=== PATIENT | female | born 1955 | race Caucasian/White ===

== ENCOUNTER 2023-10-14 14:40 | Inpatient (IN) | payer OTHER, SELFPAY ==
[2023-10-14] VITALS (13 sets, daily range): BP systolic 104–153; BP diastolic 70–135; BMI 29.7; BMI 29.4
[2023-10-14 12:18] LABS: % Eosinophils 0.5 % (0-6); % Immature Granulocytes 0.7 % (0-0.5); % Monocytes 5.9 % (1.7-9.3); % Neutrophils 82.9 % (42.2-75.2); Absolute Basophils 0.1 10^3/uL (0-0.2); Absolute Eosinophils 0.1 10^3/uL (0-0.7); Absolute Immature Granulocytes 0.1 10^3/uL (0-0.05); Absolute Lymphocytes 1.2 10^3/uL (1.2-3.4); Absolute Monocytes 0.8 10^3/uL (0.1-0.6); Absolute Neutrophils 11.2 10^3/uL (1.4-6.5); Hematocrit 37.7 % (37.0-47.0); Hemoglobin 13.1 g/dL (12.0-16.0); Mean Corp Hgb Conc. 34.7 g/dL (33.0-37.0); Mean Corpuscular Hgb 33.1 pg (27.0-31.0); Mean Corpuscular Volume 95.2 fL (81.0-99.0); Mean Platelet Volume 8.1 fL (7.4-10.4); Nucleated Red Blood Cells % 0 %; Platelet Count 263 10^3/uL (130-400); Red Blood Cell Count 3.96 10^6/uL (4.20-5.40); Red Cell Dist. Width 13.3 % (11.5-14.5); White Blood Cell Count 13.5 10^3/uL (4.8-10.8)
[2023-10-14 12:28] LABS: ALT (SGPT) 30 U/L (0-35); AST (SGOT) 28 U/L (14-36); Albumin 3.6 g/dl (3.5-5.0); Alkaline Phosphatase 142 U/L (38-126); Blood Urea Nitrogen 4 mg/dl (7-17); Calcium 8.9 mg/dl (8.4-10.2); Carbon Dioxide 30 mmol/L (22-30); Chloride 95 mmol/L (98-107); Estimated Creatinine Clearance 97 ml/min; Glucose 175 mg/dl (70-99); Potassium 3.7 mmol/L (3.5-5.1); Sodium 130 mmol/L (135-145); Total Protein 6.5 g/dl (6.3-8.2); eGFR > 60.00
[2023-10-14 12:39] LABS: Troponin I < 0.012 ng/ml
[2023-10-14] MEDS: DUONEB 3 ML INH (13:20)
--- NOTE | 2023-10-14 13:43 | ED.GENMED ---
History of Present Illness
General
Chief Complaint: Breathing Problem
Source: patient and spouse
Exam Limitations: none
Time Seen by Provider: 10/14/23 12:03
Nursing documentation reviewed up to this point in time: agreed with
Travel History
Have you had any contact with someone who has COVID-19?: No
Do you have any symptoms of coronavirus? Fever > 100 degrees, chills, cough, shortness of breath, sore throat, loss of taste or smell, muscle aches, or headache?: Yes
Symptoms:: SOB, Cough, fevers,
History of Present Illness
History of Present Illness:
69-year-old female ex-smoker, never diagnosed with COPD has psoriasis on immunosuppressive meds, presents with shortness of breath cough been sick for about a month with COVID tested positive x 2 treated with multiple antibiotics of steroids and
inhalers, last night she had a tough night could not sleep she also gets some nausea after she eats with vomitus, had ultrasound evaluate this, never had endoscopy, apparently she had a pulse ox of 86% on room air, EMS gave a neb started oxygen gave
Solu-Medrol intravenously
Phy Exam
Physical Exam
Physical Exam:
Physical Exam
General: 67 female respiratory distress
Neck: No jaundice
Heart: Tachycardia
Lungs: Diminished breath sounds in the right greater than left with faint wheeze
Abdomen: Nontender
Neuro: alert and oriented. no focal neurological deficits
Skin: no rash
Psychiatric: well kept. interactive and cooperative
Extremities: Trace edema no cords
Scores
Heart Failure Risk
Heart Failure Risk Score: Not Applicable
Course
Orders/Labs/Results
Orders:
Orders
10/14/23 11:27
Electrocardiogram (*1) Urgent
Reason for Study: Tachycardia
10/14/23 11:28
EKG- Treatment ONCE
10/14/23 11:49
COVID-19 Antigen Urgent
Source: Nasal Swab
Complete Blood Count/With Diff Urgent
Comprehensive Metabolic Panel Urgent
Troponin I Urgent
Influenza A+B Rapid Molecular Urgent
ROHIT Source: Nasal Swab
Specimen Description:
10/14/23 12:20
CR Chest Portable - 1 View Urgent
Comment:
Reason For Exam: sob
Reason Study Needs to be Portable: Patient Unstable
10/14/23 12:48
Ipratropium/Albuterol Sulfate [Duoneb] 3 ml INH R NOW STA
10/14/23 12:49
CT Chest Pe Study Urgent
Comment:
Reason For Exam: sob p covid
Abnormal Lab Results
10/14/23
11:49
WBC 13.5 H 10^3/uL
(4.8-10.8)
RBC 3.96 L 10^6/uL
(4.20-5.40)
MCH 33.1 H pg
(27.0-31.0)
Abs Immat Gran (auto) 0.1 H 10^3/uL
(0-0.05)
Absolute Neuts (auto) 11.2 H 10^3/uL
(1.4-6.5)
Absolute Monos (auto) 0.8 H 10^3/uL
(0.1-0.6)
Immature Gran % 0.7 H %
(0-0.5)
Neutrophils % 82.9 H %
(42.2-75.2)
Lymphocytes % 9.0 L %
(20.5-51.1)
Sodium 130 L mmol/L
(135-145)
Chloride 95 L mmol/L
(98-107)
BUN 4 L mg/dl
(7-17)
Creatinine 0.5 L mg/dL
(0.6-1.0)
Glucose 175 H mg/dl
(70-99)
Alkaline Phosphatase 142 H U/L
(38-126)
10/14/23 11:49
10/14/23 11:49
Vital Signs
Initial and Last Documented VS:
Initial Vital Signs
Temp Pulse Resp BP Pulse Ox
98.7 F 120 25 140/75 93
10/14/23 11:29 10/14/23 11:29 10/14/23 11:29 10/14/23 11:29 10/14/23 11:29
Last Documented Vital Signs
Temp Pulse Resp BP Pulse Ox
98.7 F 120 25 140/75 93
10/14/23 11:29 10/14/23 11:29 10/14/23 11:29 10/14/23 11:29 10/14/23 11:29
MDM/Problems Addressed
Differential Diagnosis Includes:
Bronchitis pneumonia heart failure pneumothorax PE
MDM/Problems Addressed:
Shortness of breath hypoxia
Chronic conditions affecting care:
Former smoker immunosuppressed
Chronic conditions affecting care: Immunosuppressed
Acute Exacerbation and/or Progression of Chronic Illness:
Former smoker immunosuppressed
Acute Exacerbation and/or Progression of Chronic Illness: Immunosuppressed
*Radiology
Radiology exam reviewed: radiology read reviewed
*Pulse Oximetry
Patient hypoxic: yes
Comment: 86
*EKG
Interpreted by ED Provider?: Yes
Interpretation: abnormal
Comparison EKG: no comparison EKG present
Heart Rate: 105
Rate: tachycardiac
Rhythm: sinus
Ischemia: non-specific ST changes
*Onion Topper Interpretation
Rate: tachycardiac
Interpretation: abnormal
Heart Rate: 104
Rhythm: sinus
*Critical Care Note
Total Time (30-74mins, 75-104mins- exclusive of procedures): 30
Data Reviewed
Source: patient and spouse
Prescriptions/Medications Considered But Not Given:
Steroids she already received
Further Testing Considered But Not Given:
Echocardiogram
Patient Management
Social determinants of health affecting care: Living situation and Strong social support
Discussion with other providers: Hospitalist
Escalation/DeEscalation of care consider admission/obs:
Patient with hypoxia respiratory sufficiency will require admission
Update Note
Update Note:
Patient with hypoxia persistent symptoms status post COVID x-ray noted, labs noted will check CT rule out thromboembolic disease treated with supplemental oxygen nebs already received steroids patient family updated, hospitalist notified of admission
ED Attending Note
-
Portions of this chart may have been created with voice recognition software.� Occasional wrong word or��sound alike� substitutions may have occurred due to the inherent limitations of voice recognition software.
Discharge Plan
Departure
Patient Disposition: Admit
Date of Disposition: 10/14/23
Time of Disposition: 13:52
Admit to: Med/Surg
Presentation/result/management discussed w/ accepting MD/DO: Hospitalist
Patient with high blood pressure during this ER visit?: No
Condition: Fair
Covid-19: Not Applicable
Discharge Problem:
Acute bronchitis, Hypoxia
Referrals:
Мария Calderón PA-C [Family Provider] -
Interventions
Interventions:
*Risk Screen - Suicide Last Done: 10/14/23 11:29
*General Assessment Last Done: 10/14/23 11:29
*Neglect/Abuse Screening Last Done: 10/14/23 11:29
ED- Fall Risk Assessment Last Done: 10/14/23 11:41
*ED COVID-19 Vaccine History Last Done: 10/14/23 11:29
ED- Cardiac Assessment Last Done: 10/14/23 11:41
ED- Pulmonary Assessment Last Done: 10/14/23 11:41
[2023-10-14 16:19] LABS: COVID-19 Antigen Negative (Negative)
--- NOTE | 2023-10-14 16:31 | HPS.HSE ---
Family Physician
-
Family Physician: Мария Calderón
Chief Complaint
-
Shortness of breath
History of Present Illness
67-year-old female with history of cirrhotic arthritis, presented to the hospital for evaluation of the shortness of breath worse with any kind of exertional activity, she has been having the symptoms on and off and twice diagnosed with a viral and
up respiratory tract infection treated with a steroid and antibiotic by primary care physician gets better but then comes back, abdomen gaining weight and lower extremity edema, denies any chest pain or fever or chill, have a chronic cough, no
shortness of breath worse with any kind of exertion or activities, no orthopnea paroxysmal nocturnal dyspnea.
CT chest was negative for PE showed some questionable infiltration and pneumonia.
Also admits she has been having difficulty of swallowing food and stuck in the middle of her chest and sometimes she has to throw it up.
Medical History
Past Medical History
Past Medical History: Reports Other
Additional Past Medical History:
Past medical history reviewed:
Psoriatic arthritis.
Alcohol use
Social history: Lives at home with family, denies smoking admit drinks 2 bottle of wine per week for a while said drinks 4 bottles in a week. Denies any drug use.
Family history: Reviewed and noncontributory
Past Surgical History: Reports Other
Social History
Unable to obtain full social history at this time due to: Other
Employment: Other
Family History
Family History: Other
Allergies / Home Medications
Allergies reflects when Allergies were last updated in [facility].
Home Medications with original date entered in [facility]
Allergy/Medication List:
Allergies
Allergy/AdvReac Type Severity Reaction Status Date / Time
No Known Allergies Allergy Verified 10/14/23 11:41
Home Medications
Acetaminophen Liquid 1 dose PO Q6H PRN mild pain/fever 10/14/23
Mucinex Dm Liquid 1 dose PO QID PRN cough 10/14/23
secukinumab 150 mg/mL subcutaneous syringe (Cosentyx 300 mg/2 Syringes () 300 mg SC Q4W 10/14/23
Review of Systems
-
A 12 point ROS was completed and negative except as noted: Yes
Physical Exam
Vital Signs
Vital Signs
Temp Pulse Resp BP Pulse Ox
98.7 F 93 20 124/73 94
10/14/23 11:29 10/14/23 16:00 10/14/23 16:00 10/14/23 16:00 10/14/23 16:00
physical exam:
General: Awake, alert and oriented x3, not in distress and holds appropriate conversation.
HEENT: No active discharge, ecchymosis or bruising, moist lips, tongue and mucous membrane.
Eyes: No discharge or red conjunctiva, no nystagmus, pupils are reactive and equal
Neck:Supple, no JVD no bruit no goiter.
Respiratory: Normal AP contour and diameter, normal chest wall movement, normal respiratory effort, no respiratory distress,
Lungs: Good air entry bilaterally, no wheezing or rhonchi, no rales or crackles
Heart: S1, S2 regular, normal rate, no added sound. Moderate lower extremities edema
Gastrointestinal: Positive bowel sounds, soft, nontender, no guarding or rigidity or organomegaly
Musculoskeletal: , no chest wall abnormality or tenderness. All joints and extremities have good range of motion, no muscle tenderness or any joint swelling or tenderness.
Extremities: No pitting edema, good peripheral pulses, good range of motion
Skin: Warm and dry, no ulceration, normal color.
Neurological: Awake, alert and oriented x3, cranial nerve II-XII grossly intact, speech clear and comprehensive, good muscle tone, normal sensory and motor function
Psychiatric: Normal mood, normal thought and judgment, normal affect,
Physical Exam
General: Other
Laboratory Results
-
10/14/23 11:49
03/01/24 11:49
Laboratory Results
Total Bilirubin 1.0 mg/dl (0.2-1.3) 10/14/23 11:49
AST 28 U/L (14-36) 10/14/23 11:49
ALT 30 U/L (0-35) 10/14/23 11:49
Alkaline Phosphatase 142 U/L (38-126) H 10/14/23 11:49
Troponin I < 0.012 ng/ml 10/14/23 11:49
Reviewed.
Data Reviewed
-
Diagnostic Radiology: Image Personally Visualized and interpreted, Discussed with Patient and Discussed with Family
Lab Data: Labs Reviewed by me, Discussed with Patient and Discussed with Family
Old Records: Reviewed
Impression/Plan
-
IMPRESSION:
67-year-old female presented to the hospital for intermittent shortness of breath and CT a negative for PE as she had a COVID few weeks ago, there is questionable pneumonia. While CHF may need to be considered.
Pneumonia
Concern for CHF
Dysphagia odynophagia
Psoriasis
Alcohol use
PLAN:
Will cover with IV Rocephin and oral Zithromax
Breathing treatment as needed
Get an echo
Check BNP and follow the troponin.
Further workup accordingly.
Ultrasound protocol
To GI for evaluation of the dysphagia
Advised about quitting alcohol and still continues to explain
All discussed with the patient and the family
CODE STATUS full code
DVT prophylaxis Lovenox
--- NOTE | 2023-10-14 20:45 | PTCARENOTE ---
Patient arrived from ED via stretcher to 319-2, ambulated from stretcher to bed with standby assist, tolerated well. Patient admits to being weak and overall deconditioned following last few weeks of illness. Patient states she had COVID a few weeks
ago and tested positive for almost 2 weeks -- treated with steroids and antibiotics but still unable to breathe following treatment. Last night 10/13/23 patient admits to feeling like she was 'going to ' from severe SOB/TSROUD and labored breathing.
Currently on 3LNC -- maintained at this time. Patient alert and oriented, no c/o pain at this time. Patient states she has been having issues with swallowing food and states that food often times gets stuck, where the only way to clear is by
throwing up. Patient does state 'I will admit, it mostly happens when I am out with my girlfriends and eating something that I really enjoy and having a couple of drinks.' IV in left arm is from EMS with leaking and bleeding present -- will obtain
new IV site for medications that are due. Patient also states that she has a history of psoriatic arthritis, currently left hand with redness and some flaking, but areas that are problematic at baseline are not an issue at this time since she was
taking steroids. Call sterling is within reach, patient instructed on use for assistance. Will monitor.
[2023-10-14] MEDS: THIAMINE INJECTION IV (22:00)
[2023-10-14 22:02] LABS: NT-proBNP 433 pg/ml; Troponin I < 0.012 ng/ml
[2023-10-15] MEDS: LOVENOX 40 MG SC ×2 (01:19→17:58)
[2023-10-15] MEDS: ROCEPHIN 1000 MG IV ×2 (01:25→21:11)
[2023-10-15] MEDS: STERILE WATER FOR INJECTION 10 ML IV ×2 (01:26→21:11)
[2023-10-15] MEDS: ZITHROMAX 500 MG PO ×2 (01:26→08:33)
[2023-10-15 02:03] LABS: Hematocrit 37.9 % (37.0-47.0); Hemoglobin 13.2 g/dL (12.0-16.0); Mean Corp Hgb Conc. 34.8 g/dL (33.0-37.0); Mean Corpuscular Hgb 33.4 pg (27.0-31.0); Mean Corpuscular Volume 95.9 fL (81.0-99.0); Mean Platelet Volume 8.1 fL (7.4-10.4); Platelet Count 249 10^3/uL (130-400); Red Blood Cell Count 3.95 10^6/uL (4.20-5.40); Red Cell Dist. Width 13.3 % (11.5-14.5); White Blood Cell Count 13.3 10^3/uL (4.8-10.8)
[2023-10-15 02:29] LABS: Troponin I < 0.012 ng/ml
[2023-10-15 06:05] VITALS: BMI 29.3
[2023-10-15 07:52] VITALS: BP 159/80
[2023-10-15] MEDS: THIAMINE INJECTION 200 MG IV ×2 (08:34→21:10)
--- NOTE | 2023-10-15 15:14 | CM ---
Addendum entered by Jennifer Paulino 10/15/23 15:21:
PCP - Lilian Rivera
Pharm - [facility]
Original Note:
Chart reviewed and spoke with pt and at bedside
Pt lives in a split level home with her
Reports independent at baseline
Denies DME
Denies past HH/SNF
Will have ride at d/c
CM will follow for oxygen needs at d/c
Plan - home to previous setting - oxygen needs tbd
[2023-10-15 16:30] VITALS: BP 138/78
--- NOTE | 2023-10-15 18:16 | W.PN.HOSP.TC ---
Today's Communication/Plan
-
Continue treatment for pneumonia
Still having dyspnea on exertion
Assessment / Plan
Assessment / Plan
Physical Exam
General: Not in acute distress
HEENT: Normocephalic
Neck: Supple
Respiratory: Decreased breath sounds bilaterally
Heart: S1, S2 regular, normal rate
Gastrointestinal: Positive bowel sounds, soft, nontender, no guarding or rigidity
Extremities: No cyanosis. No pitting edema.
Skin: Warm and dry
Neurological: AAOx3. Nonfocal/grossly intact
Psychiatric: Calm
Assessment/Plan
67-year-old female presented to the hospital for intermittent shortness of breath and CT a negative for PE as she had a COVID few weeks ago, there is questionable pneumonia. While CHF may need to be considered.
Pneumonia
Concern for CHF
Dysphagia odynophagia
Psoriasis
Alcohol use
Lingular opacification most likely representing scarring (on CT imaging report)
Small to moderate size hiatal hernia (on CT imaging report)
PLAN:
Continue IV Rocephin and oral Zithromax
Breathing treatment as needed
Get an echo
BNP 433
Troponins negative
Further workup accordingly.
Ultrasound protocol
To GI for evaluation of the dysphagia
Advised about quitting alcohol and still continues to explain
CODE STATUS full code
DVT prophylaxis Lovenox
Anticipated Discharge: > 48 hours
Subjective/Interval History
-
Date of Service: October 15, 2023
Patient was seen and examined. She reports ongoing shortness of breath especially with exertion.
Objective Data
-
Labs:
Laboratory Results
10/15/23
20:00
Sodium Pending
Potassium Pending
Chloride Pending
Carbon Dioxide Pending
BUN Pending
Creatinine Pending
Glucose Pending
Calcium Pending
Vital Signs:
Vital Signs
Temp Pulse Resp BP Pulse Ox
97.9 F 91 17 138/78 95
10/15/23 16:30 10/15/23 16:30 10/15/23 16:30 10/15/23 16:30 10/15/23 16:30
I&O
10/14/23 10/15/23 10/16/23
06:59 06:59 06:59
Intake Total 1040 / 1040
Balance 1040 / 1040
[2023-10-15 19:05] VITALS: BP 148/79
[2023-10-15 20:14] LABS: Blood Urea Nitrogen 15 mg/dl (7-17); Carbon Dioxide 35 mmol/L (22-30); Chloride 95 mmol/L (98-107); Estimated Creatinine Clearance 83 ml/min; Glucose 163 mg/dl (70-99); Potassium 3.8 mmol/L (3.5-5.1); Sodium 135 mmol/L (135-145); eGFR > 60.00
[2023-10-15 21:35] VITALS: BP 149/83
--- NOTE | 2023-10-15 21:52 | PTCARENOTE ---
Patient c/o increased anxiety this evening following conversation with physician about not being able to be discharged tomorrow. Patient appears to have increased WOB at this time, satting well on 3LNC at 96% at this time. VSS. Noted to also have
redness, swelling, irritation and purulent discharge to right eye that patient states is new for her. Warm compress provided to patient for right eye with no relief. LAWANDA Jurado notified -- one time dose Ativan ordered -- will obtain dose and
provide to patient. Erythromycin ointment ordered for right eye -- will also obtain and provide to patient per orders. See MAR. Call sterling within reach, will continue to monitor.
[2023-10-15] MEDS: ATIVAN 0.5 MG PO (22:13)
[2023-10-15] MEDS: ERYTHROMYCIN 0.5% OPHTHALMIC OINTMENT 1 APPLIC OPHTH (22:23)
[2023-10-15 23:40] VITALS: BP 139/76
[2023-10-16] VITALS (8 sets, daily range): BP systolic 108–155; BP diastolic 57–80; PULSE 103–109; O2SAT 94–95
[2023-10-16] MEDS: THIAMINE INJECTION 200 MG IV ×2 (08:54→19:52)
[2023-10-16] MEDS: ZITHROMAX 500 MG PO (08:55)
[2023-10-16] MEDS: ERYTHROMYCIN 0.5% OPHTHALMIC OINTMENT 1 APPLIC OPHTH ×4 (08:55→20:17)
[2023-10-16 09:34] LABS: % Basophils 0.8 % (0-2); % Eosinophils 0.5 % (0-6); % Immature Granulocytes 0.8 % (0-0.5); % Lymphocytes 15.3 % (20.5-51.1); % Monocytes 4.6 % (1.7-9.3); Absolute Basophils 0.1 10^3/uL (0-0.2); Absolute Eosinophils 0.1 10^3/uL (0-0.7); Absolute Immature Granulocytes 0.1 10^3/uL (0-0.05); Absolute Monocytes 0.6 10^3/uL (0.1-0.6); Absolute Neutrophils 10.1 10^3/uL (1.4-6.5); Hematocrit 40.8 % (37.0-47.0); Hemoglobin 13.6 g/dL (12.0-16.0); Mean Corp Hgb Conc. 33.3 g/dL (33.0-37.0); Mean Corpuscular Hgb 33.3 pg (27.0-31.0); Mean Platelet Volume 7.9 fL (7.4-10.4); Nucleated Red Blood Cells % 0 %; Platelet Count 284 10^3/uL (130-400); Red Blood Cell Count 4.08 10^6/uL (4.20-5.40); Red Cell Dist. Width 13.8 % (11.5-14.5)
[2023-10-16 09:57] LABS: ALT (SGPT) 35 U/L (0-35); AST (SGOT) 28 U/L (14-36); Albumin 3.7 g/dl (3.5-5.0); Alkaline Phosphatase 119 U/L (38-126); Blood Urea Nitrogen 14 mg/dl (7-17); Calcium 9.1 mg/dl (8.4-10.2); Carbon Dioxide 36 mmol/L (22-30); Chloride 95 mmol/L (98-107); Estimated Creatinine Clearance 83 ml/min; Glucose 125 mg/dl (70-99); Potassium 3.9 mmol/L (3.5-5.1); Sodium 136 mmol/L (135-145); Total Bilirubin 0.4 mg/dl (0.2-1.3); Total Protein 6.5 g/dl (6.3-8.2); eGFR > 60.00
[2023-10-16] MEDS: LOVENOX 40 MG SC (17:33)
--- NOTE | 2023-10-16 18:47 | W.PN.HOSP.TC ---
Today's Communication/Plan
-
Consulted pulmonary to look into undiagnosed COPD as patient is a former smoker
Echo pending for tomorrow
Continue to require increased oxygen on exertion and has dyspnea on exertion which is new for her
Assessment / Plan
Assessment / Plan
Physical Exam
General: Not in acute distress
HEENT: Normocephalic
Neck: Supple
Respiratory: Decreased breath sounds bilaterally
Heart: S1, S2 regular, normal rate
Gastrointestinal: Positive bowel sounds, soft, nontender, no guarding or rigidity
Extremities: No cyanosis. No pitting edema.
Skin: Warm and dry
Neurological: AAOx3. Nonfocal/grossly intact
Psychiatric: Calm
Assessment/Plan
67-year-old female presented to the hospital for intermittent shortness of breath and CT a negative for PE as she had a COVID few weeks ago, there is questionable pneumonia. While CHF may need to be considered.
Pneumonia
Concern for CHF
Dysphagia odynophagia
Psoriasis
Alcohol use
Lingular opacification most likely representing scarring (on CT imaging report)
Small to moderate size hiatal hernia (on CT imaging report)
PLAN:
No PE on CT Chest imaging
Continue IV Rocephin and oral Zithromax
Breathing treatment as needed
Get an echo (per nurse it is scheduled for Tuesday, October 17, 2023)
BNP 433
Troponins negative
Consulted pulmonary, recommendations appreciated
CODE STATUS full code
DVT prophylaxis Lovenox
Anticipated Discharge: 24 - 48 hours
Subjective/Interval History
-
Date of Service: October 16, 2023
Patient was seen and examined. She reported that she still has increased oxygen requirements while ambulating, still with worsening shortness of breath when walking.
Objective Data
-
Labs:
Laboratory Results
10/16/23
09:24
WBC 13.0 H
Hgb 13.6
Hct 40.8
Plt Count 284
Sodium 136
Potassium 3.9
Chloride 95 L
Carbon Dioxide 36 H
BUN 14
Creatinine 0.7
Glucose 125 H
Calcium 9.1
Total Bilirubin 0.4
AST 28
ALT 35
Alkaline Phosphatase 119
Vital Signs:
Vital Signs
Temp Pulse Resp BP Pulse Ox
98.2 F 90 17 111/64 96
10/16/23 15:43 10/16/23 15:43 10/16/23 15:43 10/16/23 15:43 10/16/23 15:43
I&O
10/15/23 10/16/23 10/17/23
06:59 06:59 06:59
Intake Total 1540 / 1540
Balance 1540 / 1540
[2023-10-16] MEDS: FLUSH (NSS) 2 FLUSH IV (19:52)
[2023-10-16] MEDS: ROCEPHIN 1000 MG IV (20:16)
[2023-10-16] MEDS: STERILE WATER FOR INJECTION 10 ML IV (20:17)
[2023-10-17 03:06] VITALS: BP 140/61
[2023-10-17 06:00] VITALS: BMI 29.2
[2023-10-17 06:13] LABS: % Basophils 0.7 % (0-2); % Eosinophils 0.9 % (0-6); % Immature Granulocytes 0.8 % (0-0.5); % Lymphocytes 20.9 % (20.5-51.1); % Monocytes 5.6 % (1.7-9.3); % Neutrophils 71.1 % (42.2-75.2); Absolute Basophils 0.1 10^3/uL (0-0.2); Absolute Eosinophils 0.1 10^3/uL (0-0.7); Absolute Immature Granulocytes 0.1 10^3/uL (0-0.05); Absolute Lymphocytes 2.2 10^3/uL (1.2-3.4); Absolute Monocytes 0.6 10^3/uL (0.1-0.6); Absolute Neutrophils 7.6 10^3/uL (1.4-6.5); Hematocrit 37.4 % (37.0-47.0); Hemoglobin 12.4 g/dL (12.0-16.0); Mean Corp Hgb Conc. 33.2 g/dL (33.0-37.0); Mean Corpuscular Hgb 33.1 pg (27.0-31.0); Mean Corpuscular Volume 99.7 fL (81.0-99.0); Mean Platelet Volume 7.9 fL (7.4-10.4); Nucleated Red Blood Cells % 0 %; Platelet Count 266 10^3/uL (130-400); Red Blood Cell Count 3.75 10^6/uL (4.20-5.40); Red Cell Dist. Width 13.8 % (11.5-14.5); White Blood Cell Count 10.6 10^3/uL (4.8-10.8)
[2023-10-17 07:00] VITALS: BP 153/69
[2023-10-17 07:14] LABS: Blood Urea Nitrogen 11 mg/dl (7-17); Calcium 9.1 mg/dl (8.4-10.2); Chloride 89 mmol/L (98-107); Estimated Creatinine Clearance 96 ml/min; Glucose 141 mg/dl (70-99); Potassium 4.1 mmol/L (3.5-5.1); Sodium 134 mmol/L (135-145); eGFR > 60.00
[2023-10-17 08:14] LABS: Carbon Dioxide 37 mmol/L (22-30)
--- NOTE | 2023-10-17 08:50 | CARDSERVLU ---
Echocardiogram with Lumason completed after protocol screening completed. Allergies verified.
Patent IV site: ___R wrist__
IV site flushed with 0.9% NaCl pre and post administration.
Diluted bolus method utilized to enhance visualization of ventricular guardado.
Total volume given: __2.5_ mL
Patient tolerated all procedures well without complications.
[2023-10-17] MEDS: THIAMINE INJECTION 200 MG IV (09:17)
[2023-10-17] MEDS: ZITHROMAX 500 MG PO (09:17)
[2023-10-17] MEDS: ERYTHROMYCIN 0.5% OPHTHALMIC OINTMENT 1 APPLIC OPHTH ×3 (09:18→17:49)
--- NOTE | 2023-10-17 10:01 | CON.PUL ---
Consultation
Consultation Request
Date/Time Consultation Requested: 10/17/23-8 AM
Date/Time Consultation Performed: 10/17/2023-10 AM
Requesting Provider: Hospitalist
Performing Provider: Dr. Goss
Reason for Consultation: Shortness of breath
Medical History
-
Chief Complaint: Shortness of breath
History of Present Illness:
67-year-old female with a history of psoriatic arthritis who had covid infection several weeks ago and presented with progressive shortness of breath-pulmonary consulted for shortness of breath/possible COPD 10/17/2023. She states that this was her
second covid infection and was much worse. She was sick for nearly a month. She was out of the window for antivirals. She was placed on steroids as well as antibiotics. She continued to have significant shortness of breath some chest congestion,
productive cough, but denied any pleurisy, chest pain, fevers or chills. She does have a chronic cough. She has shortness of breath with minimal exertion. She did not have orthopnea or paroxysmal nocturnal dyspnea. She had a CT chest that was
negative for pulm embolism but an infiltrate was noted. She did not complain of any abdominal pain or increased lower extremity swelling.
Past Medical History
Past Medical History: None (Psoriatic arthritis. Former smoker. COPD suspected. Daily alcohol consumption)
Social History
Tobacco: Former Smoker ([id number] quit 5 years ago)
Alcohol: Daily
Drug: None
Personal:
Living: With Family
Occupational Exposures: No known asbestos exposure
Environmental Exposures: No known tuberculosis exposure
Family History
Family History: Reviewed & Not Pertinent
Allergies / Home Medications
Allergies
Allergy/AdvReac Type Severity Reaction Status Date / Time
No Known Allergies Allergy Verified 10/14/23 11:41
Home Medications
Medication Instructions Recorded Confirmed Last Taken Type
Acetaminophen Liquid 1 dose PO Q6H PRN mild pain/fever 10/14/23 10/14/23 10/14/23 History
Mucinex Dm Liquid 1 dose PO QID PRN cough 10/14/23 10/14/23 10/14/23 History
secukinumab 150 mg/mL subcutaneous 300 mg SC Q4W 10/14/23 10/14/23 Unknown History
syringe (Cosentyx 300 mg/2
Syringes ()
Review of Systems
-
Unable to Obtain full review of systems at this time due to: Other (Per HPI)
Vitals / Labs / Diagnostic Testing
Vital Signs
Temp Pulse Resp BP Pulse Ox
98.0 F 85 19 153/69 93
10/17/23 07:00 10/17/23 07:00 10/17/23 07:00 10/17/23 07:00 10/17/23 09:34
Lab Data
10/17/23 05:59
10/17/23 05:59
Microbiology
10/14/23 11:49 Nasal Swab Influenza Types A & B (KILEY) - Final
Negative for Influenza A & B, NAAT
Negative results must be combined with clinical observations
and patient history.
Nucleic Acid Amplification test (NAAT)performed on the
[employer] platform.
Diagnostic Testing:
Physical Exam
-
Exam:
Well-nourished and well-developed in no apparent distress
HEENT-atraumatic, normocephalic
Neck-supple, no JVD, no bruit
Heart-regular rate and rhythm-no murmurs, rubs or gallops
Chest with diminished breath sounds, prolonged expiratory time forced wheezes and rare crackle
Abdomen-soft, nontender, nondistended, no hepatosplenomegaly
Extremities-no cyanosis, clubbing, edema and good peripheral pulses
Integument-intact, no rashes, lesions or ecchymosis
Neurology-alert and oriented, nonfocal motor and sensory exam
Assessment
-
67-year-old female with a history of psoriatic arthritis who had covid infection several weeks ago and presented with progressive shortness of breath-pulmonary consulted for shortness of breath/possible COPD 10/17/2023.
Assessment
Respiratory failure-hypoxemic due to pneumonia
Rdoahtkod-grkzswdnb-zrpnkoid-bacterial on top of recent viral infection- covid
COPD suspected with acute exacerbation
Leukocytosis-WBC 13.5
Mild hyponatremia
Mild hyperglycemia
Conditions present prior to admission:
Psoriatic arthritis.
Former smoker.
COPD suspected.
Daily alcohol consumption
Plan
Respiratory decompensation likely due to pneumonia and underlying COPD
Supplemental oxygen
Aspiration precautions
Mucolytic's
Antitussives as needed
Add nebulizers
Check pulmonary functions
Add steroids
Follow radiographically
Check cultures
Empiric antibiotics to cover community-acquired pneumonia-Rocephin and azithromycin continue-finish 5-7 days
Monitor for alcohol withdrawal
Thiamine
Ativan if needed
Replace electrolytes
Echocardiogram-see below
Monitor blood sugar
Insulin supplementation as needed
DVT prophylaxis-on Lovenox
Early nutrition
Early mobilization
Outpatient pulmonary follow-up recommended-PFTs, ongoing smoking cessation counseling, yearly low-dose lung cancer screening CT
Diagnostic data:
Chest x-ray 10/14/2023-subsegmental atelectasis basilar opacification
CT chest 10/14/2023-no evidence for pulm embolism, small middle lobe infiltrates with air bronchograms
Echocardiogram 10/17/2023-EF 70-75%, enlarged right ventricle with normal function, right heart pressures could not be estimated, no significant valvular disease
Data Reviewed
-
EKG: Report reviewed by me
Radiology: Report reviewed by me
CT Scan: Report reviewed by me
Medical Tests (Nuc Med, Echo etc): Report reviewed by me
Labs: Labs reviewed by me
Old Records: Reviewed
Total Time Spent with Patient (in minutes): 55
[2023-10-17 11:00] VITALS: BP 133/58
--- NOTE | 2023-10-17 14:19 | W.PN.HOSP.TC ---
Today's Communication/Plan
-
Continue with antibiotics
Wean oxygen
DC planning
Assessment / Plan
Assessment / Plan
Assessment/Plan
67-year-old female presented to the hospital for intermittent shortness of breath and CT a negative for PE as she had a COVID few weeks ago, there is questionable pneumonia. While CHF may need to be considered.
RML Pneumonia
Psoriasis on Secukinumab
Lingular opacification most likely representing scarring (on CT imaging report)
Small to moderate size hiatal hernia (on CT imaging report)
Recent COVID-19 infection treated at home with ? steroids
Alcohol use
Acute hypoxic respiratory insufficiency
PLAN:
No PE on CT Chest imaging
Echo with EF of 70 to 75% with no significant valvular heart disease
BNP 433
Troponins negative
Doubt CHF. Suspect symptoms related to pneumonia which is suspect is infectious. She is feeling improved slowly with antibiotics.
Continue IV Rocephin and oral Zithromax
Breathing treatment as needed
Wean oxygen as able.
CODE STATUS full code
DVT prophylaxis Lovenox
Anticipated Discharge: Within 24 hours
Subjective/Interval History
-
Date of Service: October 17, 2023
Patient is feeling improved. She is able to walk to the bathroom better than she was at home. She is still winded with activities here in the hospital. No chest pain.
No fever or chills.
No nausea or vomiting .
Objective Data
-
Labs:
Laboratory Results
10/17/23
05:59
WBC 10.6
Hgb 12.4
Hct 37.4
Plt Count 266
Sodium 134 L
Potassium 4.1
Chloride 89 L
Carbon Dioxide 37 H
BUN 11
Creatinine 0.6
Glucose 141 H
Calcium 9.1
Vital Signs:
Vital Signs
Temp Pulse Resp BP Pulse Ox
98.3 F 85 18 133/58 95
10/17/23 11:00 10/17/23 11:00 10/17/23 11:00 10/17/23 11:00 10/17/23 11:00
I&O
10/16/23 10/17/23 10/18/23
06:59 06:59 06:59
Intake Total 1540 / 1540 480 / 480
Balance 1540 / 1540 480 / 480
Review of Systems
-
Constitutional: Denies Fever
EENT: Denies Sore Throat
Abdomen/GI: Denies Abdominal Pain
Neuro: Denies Dizzy
Physical Exam
-
General: No Apparent Distress
HEENT: Moist Mucous Membranes
Respiratory: Clear to Auscultation
Cardiac: Regular Rhythm and S1/S2
Neuro: AO x 3
Psych: Calm
Data Reviewed
-
Medical Tests (Nuc Med, Echo etc): Report Reviewed by me (ECHO)
Labs: Labs Reviewed by me
--- NOTE | 2023-10-17 14:29 | CM ---
Reviewed chart, indication on behalf of OT and PT is for SNF. Met with patient to discuss. She was initially hesitant however her spouse came and admitted that he would have some difficulty taking care of her at home as she is deconditioned since
she had Covid. Patient was agreeable to referrals being made in the [place] area but she is hoping that she can just go home with VN. She stated that [facility] would be her choice.
Will make referrals and keep patient and her spouse up to date as to who can accept.
Plan: Case management will continue to follow and assist with discharge planning. Home vrs. VN vrs. SNF.
[2023-10-17 15:00] VITALS: BP 123/60
[2023-10-17] MEDS: DUONEB 3 ML INH (15:41)
[2023-10-17] MEDS: MUCINEX 1200 MG PO (15:42)
[2023-10-17] MEDS: DECADRON 4 MG IV ×2 (15:42→23:02)
[2023-10-17] MEDS: LOVENOX 40 MG SC (17:49)
[2023-10-17 19:10] VITALS: BP 121/64
[2023-10-17] MEDS: DUONEB INH (20:00)
[2023-10-17] MEDS: VITAMIN B1 100 MG PO (21:20)
[2023-10-17] MEDS: ERYTHROMYCIN 0.5% OPHTHALMIC OINTMENT OPHTH (21:31)
[2023-10-17] MEDS: ROCEPHIN 1000 MG IV (22:30)
[2023-10-17] MEDS: STERILE WATER FOR INJECTION 10 ML IV (22:30)
[2023-10-17] MEDS: ROBITUSSIN DM 5 ML PO (22:49)
[2023-10-17 23:18] VITALS: BP 126/61
[2023-10-18] VITALS (7 sets, daily range): BP systolic 147–174; BP diastolic 78–85; O2SAT 92
[2023-10-18 06:58] LABS: % Basophils 0.3 % (0-2); % Eosinophils 0.1 % (0-6); % Immature Granulocytes 1.4 % (0-0.5); % Lymphocytes 15.3 % (20.5-51.1); % Monocytes 5.2 % (1.7-9.3); % Neutrophils 77.7 % (42.2-75.2); Absolute Immature Granulocytes 0.1 10^3/uL (0-0.05); Absolute Lymphocytes 1.4 10^3/uL (1.2-3.4); Absolute Monocytes 0.5 10^3/uL (0.1-0.6); Absolute Neutrophils 7.1 10^3/uL (1.4-6.5); Hematocrit 39.3 % (37.0-47.0); Mean Corp Hgb Conc. 33.1 g/dL (33.0-37.0); Mean Corpuscular Hgb 32.8 pg (27.0-31.0); Mean Corpuscular Volume 99.2 fL (81.0-99.0); Nucleated Red Blood Cells % 0 %; Platelet Count 232 10^3/uL (130-400); Red Blood Cell Count 3.96 10^6/uL (4.20-5.40); Red Cell Dist. Width 13.2 % (11.5-14.5); White Blood Cell Count 9.1 10^3/uL (4.8-10.8)
[2023-10-18] MEDS: DECADRON 4 MG IV ×2 (07:13→20:57)
[2023-10-18] MEDS: VITAMIN B1 100 MG PO ×2 (07:13→20:57)
[2023-10-18] MEDS: ERYTHROMYCIN 0.5% OPHTHALMIC OINTMENT 1 APPLIC OPHTH (07:13)
[2023-10-18] MEDS: ZITHROMAX 500 MG PO (07:13)
[2023-10-18 07:18] LABS: Blood Urea Nitrogen 10 mg/dl (7-17); Calcium 9.2 mg/dl (8.4-10.2); Carbon Dioxide 38 mmol/L (22-30); Chloride 93 mmol/L (98-107); Estimated Creatinine Clearance 96 ml/min; Glucose 168 mg/dl (70-99); Magnesium 2.4 mg/dl (1.6-2.3); Potassium 4.2 mmol/L (3.5-5.1); Sodium 135 mmol/L (135-145); eGFR > 60.00
--- NOTE | 2023-10-18 10:51 | W.PN.PUL.V3 ---
Today's Communication / Plan
-
.
Decrease steroids with anxiety.
Ativan if needed and signs of withdrawal.
Antibiotics.
Inhalers.
Outpatient pulmonary follow-up
Assessment
-
67-year-old female with a history of psoriatic arthritis who had covid infection several weeks ago and presented with progressive shortness of breath-pulmonary consulted for shortness of breath/possible COPD 10/17/2023.
Assessment
Respiratory failure-hypoxemic due to pneumonia
Tcknroctf-rucnldyqu-tsvjlfrt-bacterial on top of recent viral infection- covid
COPD-goal stage IV with acute exacerbation
Leukocytosis-WBC 13.5
Mild hyponatremia
Mild hyperglycemia
Conditions present prior to admission:
Psoriatic arthritis.
Former smoker.
COPD -goal stage IV
Daily alcohol consumption
Plan
Her respiratory decompensation likely due to pneumonia and underlying COPD
Supplemental oxygen-attempt to wean.
Assessment discharge supplemental oxygen need the time of discharge
Aspiration precautions
Mucolytic's
Antitussives as needed.
Nebulizers added-patient now refusing 'after one nebulizer. She felt heart racing and 'shaky'
Bedside spirometry-revealed severe obstruction-FEV1 690 mL-28% predicted.
Wean steroids-could be adding to anxiety
Follow radiographically on occasion
Cultures gpdgtzpx-qudjlgsnsaj-kjkoempvl negative
Empiric antibiotics to cover community-acquired pneumonia-Rocephin and azithromycin continue-finish 5-7 days
Continue to monitor for alcohol withdrawal-admits to 2 bottles of wine a week-drinks every day, denies ever going through withdrawal, though she never stopped drinking for more than one day prior to this admission
Thiamine
Ativan if needed-reviewed with nursing-they are following [facility]
Continue to replace electrolytes
Monitor blood sugar
Insulin supplementation as needed
DVT prophylaxis-on Lovenox
Continue nutrition.
Increase activity.
Ideally discharged on prednisone taper, antibiotics and inhalers such as Anoro 1 puff daily
Outpatient pulmonary follow-up recommended-PFTs, ongoing smoking cessation counseling, yearly low-dose lung cancer screening CT
Diagnostic data:
Chest x-ray 10/14/2023-subsegmental atelectasis basilar opacification
CT chest 10/14/2023-no evidence for pulm embolism, small middle lobe infiltrates with air bronchograms
Echocardiogram 10/17/2023-EF 70-75%, enlarged right ventricle with normal function, right heart pressures could not be estimated, no significant valvular disease
Subjective Data
-
Date of Service:
Date of Service: October 18, 2023
Chief Complaint: Pulmonary Follow Up and Dyspnea Follow Up
Subjective:
Complains of feeling anxious, and a nebulizer treatment yesterday and felt shaky afterwards and is refusing them since that time, no chest pain, abdominal pain, or increased swelling
Review of Systems
General: Other ( per HPI)
Objective Data
Data Reviewed
Vital Signs / I&O:
Vital Signs
Temp Pulse Resp BP Pulse Ox
97.1 F 88 17 174/85 92
10/18/23 07:00 10/18/23 07:00 10/18/23 07:00 10/18/23 07:00 10/18/23 08:36
Intake and Output
10/17/23 10/18/23 10/19/23
06:59 06:59 06:59
Intake Total 480 / 480 1200 / 1200
Balance 480 / 480 1200 / 1200
SaO2: 92
Nasal Cannula flow liters per minute: 3
Physical Exam
General: Respiratory Distress (n) and Comfortable
HEENT: Normocephalic, Anicteric and Moist Mucous Membranes
Cardiovascular: Regular Rhythm
Respiratory: Wheeze ( expiratory), Crackles ( rare basilar), Rhonchi (n), Non-Labored Respirations, Accessory Resp Muscle Use (n) and Stridor (n)
GI: Soft, Non Distended and Non Tender
Neurology: Awake, Alert and No Motor Deficits
Skin: Warm, Good Color, Cyanosis (n) and Jaundice (n)
Labs/Micro/Reports
Lab Data
10/18/23 06:14
10/18/23 06:14
--- NOTE | 2023-10-18 11:53 | W.PN.HOSP.TC ---
Today's Communication/Plan
-
Wean oxygen.
Continue with antibiotics
Wean steroids per pulmonary.
Assessment / Plan
Assessment / Plan
Assessment/Plan
67-year-old female presented to the hospital for intermittent shortness of breath and CT a negative for PE as she had a COVID few weeks ago, there is questionable pneumonia. While CHF may need to be considered.
RML Pneumonia
Psoriasis on Secukinumab
Lingular opacification most likely representing scarring (on CT imaging report)
Small to moderate size hiatal hernia (on CT imaging report)
Recent COVID-19 infection treated at home with ? steroids
Alcohol use
Acute hypoxic respiratory insufficiency
Possible COPD with flare
PLAN:
No PE on CT Chest imaging
Echo with EF of 70 to 75% with no significant valvular heart disease
BNP 433
Troponins negative
Doubt CHF. Suspect symptoms related to pneumonia which is suspect is infectious. She is feeling improved slowly with antibiotics.
Continue IV Rocephin and oral Zithromax
Breathing treatment as needed
Wean oxygen as able.
Appreciate pulmonary input-currently on steroids-wean per pulmonary
CODE STATUS full code
DVT prophylaxis Lovenox
Anticipated Discharge: 24 - 48 hours
Subjective/Interval History
-
Date of Service: October 18, 2023
Feels breathing is improved.
Had tachycardia with nebulizer treatments.
Objective Data
-
Labs:
Laboratory Results
10/18/23
06:14
WBC 9.1
Hgb 13.0
Hct 39.3
Plt Count 232
Sodium 135
Potassium 4.2
Chloride 93 L
Carbon Dioxide 38 H
BUN 10
Creatinine 0.5 L
Glucose 168 H
Calcium 9.2
Vital Signs:
Vital Signs
Temp Pulse Resp BP Pulse Ox
97.1 F 88 17 174/85 92
10/18/23 07:00 10/18/23 07:00 10/18/23 07:00 10/18/23 07:00 10/18/23 10:51
I&O
10/17/23 10/18/23 10/19/23
06:59 06:59 06:59
Intake Total 480 / 480 1200 / 1200
Balance 480 / 480 1200 / 1200
Review of Systems
-
Constitutional: Denies Fever
EENT: Denies Sore Throat
Cardiac: Denies Chest Pain
Abdomen/GI: Denies Abdominal Pain, Nausea or Vomiting
Neuro: Denies Dizzy
Physical Exam
-
General: No Apparent Distress
HEENT: Moist Mucous Membranes
Respiratory: Non Labored Respirations and Decreased Breath Sounds (In general); Negative Wheezes, Crackles or Accessory Resp Muscle Use
Cardiac: Regular Rhythm and S1/S2
Neuro: AO x 3
Data Reviewed
-
Labs: Labs Reviewed by me
[2023-10-18] MEDS: ERYTHROMYCIN 0.5% OPHTHALMIC OINTMENT OPHTH ×3 (13:13→21:11)
--- NOTE | 2023-10-18 15:36 | PN.CDI ---
CDI
- -
CDI:
Physician Documentation Request
Admit Date: 10/14/23 14:40
Dear Doctor Luis Felipe,
Clinical Indicators:
Patient admitted with RML Pneumonia. PMH includes psoriasis on Secukinumab.
WBC count on admission:
10/14/23
11:49
WBC 13.5 H
HR/RR trend on admission:
10/14/23
11:29 10/14/23
12:00 10/14/23
12:30
Pulse 120 104 103
Resp Rate 25 25 26
10/14/23
13:00 10/14/23
13:15 10/14/23
14:00
Pulse 97 98 102
Resp Rate 21 36 28
10/14/23
15:00
Pulse 114
Resp Rate 22
Please clarify which of the following most accurately describes the status of the patient's infection:
Sepsis, POA
- Systemic manifestations of infection, with 2 or more SIRS criteria which include:
- Fever >100.4 degrees F or hypothermia < 96.8 degrees F
- Leukocytosis - WBC > 12,000 or leukopenia - WBC < 4,000 or > 10% bands
- Tachycardia > 90 beats per minute
- Tachypnea - RR > 20 breaths per minute or PaCO2 , 32mmHg
Source: Merck Manual 2013
Pneumonia Only, Without Systemic Illness
Other please specify
Use of terms such as suspected, likely, concern for, or probable (associated with a specific diagnosis that is being evaluated, monitored, or treated as if it exists) are acceptable and can be coded in the inpatient setting, when documented at the
time of discharge.
Thank you,
ANGUS Montague RN
CDI Specialist
available via tiger text
Please use your independent medical judgment in providing your response.
[2023-10-18] MEDS: LOVENOX 40 MG SC (17:40)
[2023-10-18] MEDS: ROCEPHIN 1000 MG IV (21:12)
[2023-10-18] MEDS: STERILE WATER FOR INJECTION 10 ML IV (21:12)
[2023-10-18] MEDS: ROBITUSSIN DM 5 ML PO (21:38)
[2023-10-18] MEDS: ATIVAN 0.5 MG PO (21:39)
[2023-10-19 03:25] VITALS: BP 166/84
[2023-10-19 07:00] VITALS: BP 176/91
[2023-10-19] MEDS: ZITHROMAX 500 MG PO (07:57)
[2023-10-19] MEDS: DECADRON 4 MG IV ×2 (07:58→23:07)
[2023-10-19] MEDS: VITAMIN B1 100 MG PO ×2 (07:58→23:08)
[2023-10-19] MEDS: ERYTHROMYCIN 0.5% OPHTHALMIC OINTMENT OPHTH ×4 (07:58→23:05)
--- NOTE | 2023-10-19 08:31 | W.PN.PUL.V3 ---
Today's Communication / Plan
-
.
Assessment discharge supplemental oxygen needs.
Anxiolytics.
Decrease steroids
Consider discharge on Anoro 1 puff daily as well as albuterol as needed.
Outpatient pulmonary follow-up
Assessment
-
67-year-old female with a history of psoriatic arthritis who had covid infection several weeks ago and presented with progressive shortness of breath-pulmonary consulted for shortness of breath/possible COPD 10/17/2023.
Assessment
Respiratory failure-hypoxemic due to pneumonia
Goczybcit-xwpdqyson-ombpknoj-bacterial on top of recent viral infection- covid
COPD-goal stage IV with acute exacerbation
Leukocytosis-WBC 13.5
Mild hyponatremia
Mild hyperglycemia
Conditions present prior to admission:
Psoriatic arthritis.
Former smoker.
COPD -goal stage IV
Daily alcohol consumption
Plan
Her respiratory decompensation likely due to pneumonia and underlying COPD
Supplemental oxygen-attempt to wean.
Assessment discharge supplemental oxygen need the time of discharge
Aspiration precautions
Mucolytic's
Antitussives as needed.
Nebulizers added-patient now refusing 'after one nebulizer. She felt heart racing and 'shaky'
Bedside spirometry-revealed severe obstruction-FEV1 690 mL-28% predicted.
Wean steroids-could be adding to anxiety-changed to prednisone with taper
Follow radiographically on occasion
Cultures hexcrmtf-cjrtgvujbfb-jiplkoigm negative
Empiric antibiotics to cover community-acquired pneumonia-Rocephin and azithromycin continue-finish 5-7 days
Continue to monitor for alcohol withdrawal-admits to 2 bottles of wine a week-drinks every day, denies ever going through withdrawal, though she never stopped drinking for more than one day prior to this admission
Thiamine
Ativan if needed-reviewed with nursing-they are following [facility]
Continue to replace electrolytes
Monitor blood sugar
Insulin supplementation as needed
DVT prophylaxis-on Lovenox
Continue nutrition.
Increase activity..
Stable for proposed discharge from a pulmonary perspective
Ideally discharged on prednisone taper, antibiotics and inhalers such as Anoro 1 puff daily addition to Albuterol as needed
Outpatient pulmonary follow-up recommended-PFTs, ongoing smoking cessation counseling, yearly low-dose lung cancer screening CT
Diagnostic data:
Chest x-ray 10/14/2023-subsegmental atelectasis basilar opacification
CT chest 10/14/2023-no evidence for pulm embolism, small middle lobe infiltrates with air bronchograms
Echocardiogram 10/17/2023-EF 70-75%, enlarged right ventricle with normal function, right heart pressures could not be estimated, no significant valvular disease.
Bedside PFT 10/18/23-FEV1 690 mL-28% predicted
Subjective Data
-
Date of Service:
Date of Service: October 19, 2023
Chief Complaint: Pulmonary Follow Up and Dyspnea Follow Up
Subjective:
Feels better, no complaints of chest pain, has some Chest congestion and cough, still has some wheezing and shortness of breath with exertion, no abdominal pain
Review of Systems
General: Other ( per HPI)
Objective Data
Data Reviewed
Vital Signs / I&O:
Vital Signs
Temp Pulse Resp BP Pulse Ox
97.5 F 93 18 176/91 92
10/19/23 07:00 10/19/23 07:00 10/19/23 07:00 10/19/23 07:00 10/19/23 07:00
Intake and Output
10/18/23 10/19/23 10/20/23
06:59 06:59 06:59
Intake Total 1200 / 1200 1140 / 1140
Balance 1200 / 1200 1140 / 1140
SaO2: 92
Nasal Cannula flow liters per minute: 2
Physical Exam
General: Respiratory Distress (n) and Comfortable
HEENT: Normocephalic, Anicteric and Moist Mucous Membranes
Cardiovascular: Regular Rhythm
Respiratory: Wheeze ( expiratory), Crackles ( rare basilar), Rhonchi (n), Non-Labored Respirations, Accessory Resp Muscle Use (n) and Stridor (n)
GI: Soft, Non Distended and Non Tender
Neurology: Awake, Alert and No Motor Deficits
Skin: Warm, Good Color, Cyanosis (n) and Jaundice (n)
[2023-10-19 09:39] LABS: % Basophils 0.5 % (0-2); % Eosinophils 0.1 % (0-6); % Immature Granulocytes 2.4 % (0-0.5); % Lymphocytes 11.9 % (20.5-51.1); % Neutrophils 82.1 % (42.2-75.2); Absolute Basophils 0.1 10^3/uL (0-0.2); Absolute Immature Granulocytes 0.3 10^3/uL (0-0.05); Absolute Lymphocytes 1.3 10^3/uL (1.2-3.4); Absolute Monocytes 0.3 10^3/uL (0.1-0.6); Absolute Neutrophils 8.9 10^3/uL (1.4-6.5); Hematocrit 41.2 % (37.0-47.0); Hemoglobin 13.9 g/dL (12.0-16.0); Mean Corp Hgb Conc. 33.7 g/dL (33.0-37.0); Mean Corpuscular Hgb 32.9 pg (27.0-31.0); Mean Corpuscular Volume 97.4 fL (81.0-99.0); Mean Platelet Volume 8.3 fL (7.4-10.4); Nucleated Red Blood Cells % 0 %; Platelet Count 296 10^3/uL (130-400); Red Blood Cell Count 4.23 10^6/uL (4.20-5.40); Red Cell Dist. Width 13.2 % (11.5-14.5); White Blood Cell Count 10.8 10^3/uL (4.8-10.8)
[2023-10-19] MEDS: XANAX 0.25 MG PO (10:10)
[2023-10-19 10:41] LABS: Blood Urea Nitrogen 14 mg/dl (7-17); Calcium 9.4 mg/dl (8.4-10.2); Carbon Dioxide 38 mmol/L (22-30); Chloride 93 mmol/L (98-107); Estimated Creatinine Clearance 96 ml/min; Glucose 145 mg/dl (70-99); Magnesium 2.3 mg/dl (1.6-2.3); Potassium 4.2 mmol/L (3.5-5.1); Sodium 136 mmol/L (135-145); eGFR > 60.00
[2023-10-19 11:30] VITALS: BP 161/73
--- NOTE | 2023-10-19 14:37 | W.PN.HOSP.TC ---
Today's Communication/Plan
-
Home O 2 eval
DC planning
Assessment / Plan
Assessment / Plan
Assessment/Plan
67-year-old female presented to the hospital for intermittent shortness of breath and CT a negative for PE as she had a COVID few weeks ago, there is questionable pneumonia. While CHF may need to be considered.
RML Pneumonia
Psoriasis on Secukinumab
Lingular opacification most likely representing scarring (on CT imaging report)
Small to moderate size hiatal hernia (on CT imaging report)
Recent COVID-19 infection treated at home with ? steroids
Alcohol use
Acute hypoxic respiratory insufficiency
Possible COPD with flare
PLAN:
No PE on CT Chest imaging
Echo with EF of 70 to 75% with no significant valvular heart disease
BNP 433
Troponins negative
Doubt CHF. Suspect symptoms related to pneumonia which is suspect is infectious. She is feeling improved slowly with antibiotics.
Continue IV Rocephin and oral Zithromax - 7 days in total abx
Breathing treatment as needed
Wean oxygen as able.
Appreciate pulmonary input-currently on steroids-wean per pulmonary
Check Home O2 need
DC home if ok from pulm standpoint
CODE STATUS full code
DVT prophylaxis Lovenox
Anticipated Discharge: Today
Subjective/Interval History
-
Date of Service: October 19, 2023
Breathing is improved.
Able to walk prior to the bathroom without being much short of breath.
Patient is history of anxiety and it is worse when she is in the hospitals. No tremors.
Objective Data
-
Labs:
Laboratory Results
10/19/23
08:17
WBC 10.8
Hgb 13.9
Hct 41.2
Plt Count 296 D
Sodium 136
Potassium 4.2
Chloride 93 L
Carbon Dioxide 38 H
BUN 14
Creatinine 0.5 L
Glucose 145 H
Calcium 9.4
Vital Signs:
Vital Signs
Temp Pulse Resp BP Pulse Ox
98.2 F 85 16 161/73 95
10/19/23 11:30 10/19/23 11:30 10/19/23 11:30 10/19/23 11:30 10/19/23 11:30
I&O
10/18/23 10/19/23 10/20/23
06:59 06:59 06:59
Intake Total 1200 / 1200 1140 / 1140
Balance 1200 / 1200 1140 / 1140
Review of Systems
-
Constitutional: Denies Fever
Respiratory: Reports Cough and Trouble Breathing (improved)
Cardiac: Denies Chest Pain
Abdomen/GI: Denies Nausea or Vomiting
Neuro: Denies Dizzy
Physical Exam
-
General: No Apparent Distress
HEENT: Moist Mucous Membranes
Respiratory: Clear to Auscultation and Non Labored Respirations; Negative Wheezes or Accessory Resp Muscle Use
Cardiac: Regular Rhythm and S1/S2
GI: Soft
Neuro: AO x 3; Negative Tremors
Psych: Calm; Negative Confused or Agitated
Data Reviewed
-
Labs: Labs Reviewed by me
[2023-10-19 15:30] VITALS: BP 160/82
--- NOTE | 2023-10-19 15:50 | W.DS.TRANS ---
DC Summary - Section Leader Screen Printing
-
Discharge Instructions:
Discharge Diagnosis/Procedures Right middle lobe Pneumonia
Psoriasis on Secukinumab
Recent COVID-19 infection
Acute hypoxic respiratory insufficiency
Possible COPD with flare
Diet Regular
Activity As tolerated
Driving Restrictions Not until seen by your Dr
Bathing Restrictions None
Instructions:
Stand-Alone Forms:
Changes to Home Medications: Yes
Discharge Medications:
DC Medications w/original date entered in [facility]
Acetaminophen Liquid 1 dose PO Q6H PRN mild pain/fever 10/14/23
Mucinex Dm Liquid 1 dose PO QID PRN cough 10/14/23
secukinumab 150 mg/mL subcutaneous syringe (Cosentyx 300 mg/2 Syringes () 300 mg SC Q4W Autoimmune Disorder 10/14/23
albuterol sulfate 90 mcg/actuation aerosol inhaler 2 puff inhalation Q6H PRN shortness of breath or wheezing #6.7 grams 10/19/23
cefuroxime axetil 500 mg tablet 500 mg PO BID #4 tabs 10/19/23
dextromethorphan-guaifenesin 10 mg-100 mg/5 mL oral syrup 5 ml PO Q6HPRN PRN cough #237 mL 10/19/23
prednisone 10 mg tablet 10 mg PO DIRECTED #18 tabs 10/19/23
umeclidinium 62.5 mcg-vilanterol 25 mcg/actuation powdr for inhalation (Anoro Ellipta) 1 inh inhalation DAILY #14 ea 10/19/23
Home Medication Changes
New medication-Anoro inhaler, prednisone taper, cefuroxime, albuterol inhaler
Pending Results: No
--- NOTE | 2023-10-19 15:52 | W.DCSUMMARY ---
Addendum entered and electronically signed by Reynaldo Briscoe MD 10/20/23 10:19:
Date of discharge 10/20/2023
Original Note:
Discharge Summary
Discharge Data
Date of Admission: 10/14/23
Date of Discharge: 10/19/23
-
Pending Results: No
Hospital Course
Primary diagnosis:
Acute hypoxic respiratory insufficiency
Right middle lobe pneumonia
Chronic obstructive pulmonary disease-Gold stage IV with exacerbation
Secondary diagnosis:
Psoriatic arthritis on Cosentyx therapy
Former smoker
Hospital course:
Patient presented shortness of breath . She was noted to be hypoxic along with that. She had a chest imaging including chest CT which showed no evidence of PE but there was a right middle lobe opacity concerning for pneumonia. She recently had a
COVID-19 infection. She was seen by pulmonary and there is a concern about COPD flare.She is an ex smoker. She had bedside spirometry which showed severe obstruction with FEV1 690 mL which was 28% predicted limiting the stage Gold criteria stage
IV. She was treated with antibiotics and steroids and inhalers without clinical improvement. She was requiring 3 L of oxygen and on discharge she was doing fine without oxygen at rest but with exertion she dropped to 88%. Home oxygen was arranged.
She was discharged on steroid taper and as well as prescribed Anoro inhaler as well as albuterol inhaler. She will follow-up with pulmonary as an outpatient.
Consultants on board:
Pulmonary Dr Sanches
Discharge Plan
-
Patient Disposition: Home (Routine Discharge)
Discharge Diagnosis/Procedures: Right middle lobe Pneumonia
Psoriasis on Secukinumab
Recent COVID-19 infection
Acute hypoxic respiratory insufficiency
Possible COPD with flare
Condition: Fair
Diet: Regular
Activity: As tolerated
Driving Restrictions: Not until seen by your Dr
Bathing Restrictions: None
Referrals:
Мария Calderón PA-C [Family Provider] - in less than 1 week
Desmond Goss MD [Active] - (Dr. Goss or [employer]-will need full PFTs, lung cancer screening, etc.)
Prescriptions:
New
prednisone 10 mg tablet
10 mg PO DIRECTED Qty: 18 0RF
Rx Instructions:
30mg daily * 3 days and cut it by 10mg every three days
dextromethorphan-guaifenesin 10-100 mg/5 mL Syrup
5 ml PO Q6HPRN PRN (Reason: cough) Qty: 237 0RF
cefuroxime axetil 500 mg tablet
500 mg PO BID Qty: 4 0RF
albuterol sulfate 90 mcg/actuation HFA aerosol inhaler
2 puff inhalation Q6H PRN (Reason: shortness of breath or wheezing) Qty: 6.7 1RF
Anoro Ellipta 62.5-25 mcg/actuation blister with device
1 inh inhalation DAILY Qty: 14 0RF
Continued
Acetaminophen Liquid
1 dose PO Q6H PRN (Reason: mild pain/fever)
Mucinex Dm Liquid
1 dose PO QID PRN (Reason: cough)
Held
Cosentyx (2 Syringes) 150 mg/mL Syringe
300 mg SC Q4W
Hold Instructions: Resume on 10/26/23. hold till you are done with antibiotics and steroids
Discharge Orders:
Discharge Patient (As Directed); Ordered 10/19/23
Ordered By: Reynaldo Briscoe
--- NOTE | 2023-10-19 16:03 | CM ---
Received TT from attending who stated that patient can be discharged today if she gets her o2. Placed a call to Yaa from [facility], she texted back that once everything is faxed, she can have o2 to patient at 8am tomorrow. Attending aware.
Plan: Case management will continue to follow and assist with discharge planning. Bhavna with o2.
[2023-10-19] MEDS: LOVENOX 40 MG SC (17:55)
[2023-10-19 23:00] VITALS: BP 140/71
[2023-10-19] MEDS: STERILE WATER FOR INJECTION 10 ML IV (23:07)
[2023-10-19] MEDS: ROCEPHIN 1000 MG IV (23:07)
[2023-10-19] MEDS: ROBITUSSIN DM 5 ML PO (23:20)
[2023-10-20 07:30] VITALS: BP 153/77
[2023-10-20] MEDS: VITAMIN B1 100 MG PO (08:54)
[2023-10-20] MEDS: ERYTHROMYCIN 0.5% OPHTHALMIC OINTMENT OPHTH (08:54)
[2023-10-20] MEDS: ZITHROMAX 500 MG PO (08:54)
[2023-10-20] MEDS: DECADRON 4 MG IV (08:55)
--- NOTE | 2023-10-20 09:50 | W.PN.PUL.V3 ---
Today's Communication / Plan
-
.
Wean oxygen..
Arranged home oxygen
Prednisone taper.
Anxiolytics.
Stable for discharge
Assessment
-
67-year-old female with a history of psoriatic arthritis who had covid infection several weeks ago and presented with progressive shortness of breath-pulmonary consulted for shortness of breath/possible COPD 10/17/2023.
Assessment
Respiratory failure-hypoxemic due to pneumonia
Xahrcttll-zsixrvzsg-qwmahgln-bacterial on top of recent viral infection- covid
COPD-goal stage IV with acute exacerbation
Leukocytosis-WBC 13.5
Mild hyponatremia
Mild hyperglycemia
Conditions present prior to admission:
Psoriatic arthritis.
Former smoker.
COPD -goal stage IV
Daily alcohol consumption
Plan
Her respiratory decompensation likely due to pneumonia and underlying COPD
Supplemental oxygen-attempt to wean.
Assessment discharge supplemental oxygen need the time of discharge
Aspiration precautions
Mucolytic's continue
Antitussives as needed.
Nebulizers added-patient now refusing 'after one nebulizer. She felt heart racing and 'shaky'
Bedside spirometry-revealed severe obstruction-FEV1 690 mL-28% predicted.
Wean steroids-could be adding to anxiety-changed to prednisone with taper
Follow radiographically on occasion
Cultures abhlydbv-ytrbwwbquop-ldnajxind negative
Empiric antibiotics to cover community-acquired pneumonia-Rocephin and azithromycin continue-finish 5-7 days
Continue to monitor for alcohol withdrawal-admits to 2 bottles of wine a week-drinks every day, denies ever going through withdrawal, though she never stopped drinking for more than one day prior to this admission
Thiamine
Ativan if needed-reviewed with nursing-they are following [facility]
Continue to replace electrolytes
Monitor blood sugar
Insulin supplementation as needed
DVT prophylaxis-on Lovenox
Continue nutrition.
Increase activity.
Patient remains stable for proposed discharge from a pulmonary perspective.
Reviewed with nursing, at the bedside as well as Dr. Briscoe
Ideally discharged on prednisone taper, antibiotics and inhalers such as Anoro 1 puff daily addition to Albuterol as needed
Outpatient pulmonary follow-up recommended-PFTs, ongoing smoking cessation counseling, yearly low-dose lung cancer screening CT
Diagnostic data:
Chest x-ray 10/14/2023-subsegmental atelectasis basilar opacification
CT chest 10/14/2023-no evidence for pulm embolism, small middle lobe infiltrates with air bronchograms
Echocardiogram 10/17/2023-EF 70-75%, enlarged right ventricle with normal function, right heart pressures could not be estimated, no significant valvular disease.
Bedside PFT 10/18/23-FEV1 690 mL-28% predicted
Subjective Data
-
Date of Service:
Date of Service: October 20, 2023
Chief Complaint: Pulmonary Follow Up and Dyspnea Follow Up
Subjective:
Overall feels improved, less short of breath, still anxious, does not sleep well, no chest pain, productive cough, or abdominal pain
Review of Systems
General: Other ( per HPI)
Objective Data
Data Reviewed
Vital Signs / I&O:
Vital Signs
Temp Pulse Resp BP Pulse Ox
97.4 F 87 18 153/77 95
10/20/23 07:30 10/20/23 07:30 10/20/23 07:30 10/20/23 07:30 10/20/23 07:30
Intake and Output
10/19/23 10/20/23 10/21/23
06:59 06:59 06:59
Intake Total 1140 / 1140 550 / 550 480 / 480
Balance 1140 / 1140 550 / 550 480 / 480
SaO2: 95
Nasal Cannula flow liters per minute: 2
Physical Exam
General: Respiratory Distress (n) and Comfortable
HEENT: Normocephalic, Anicteric and Moist Mucous Membranes
Cardiovascular: Regular Rhythm
Respiratory: Wheeze ( expiratory), Crackles ( rare basilar), Rhonchi (n), Non-Labored Respirations, Accessory Resp Muscle Use (n) and Stridor (n)
GI: Soft, Non Distended and Non Tender
Neurology: Awake, Alert and No Motor Deficits
Skin: Warm, Good Color, Cyanosis (n) and Jaundice (n)
Labs/Micro/Reports
Lab Data
10/19/23 08:17
10/19/23 08:17
--- NOTE | 2023-10-20 10:02 | CM ---
Received return call from Mainor at [employer] who stated that patient has her portable o2 and once she and her spouse get home, they can call the main [employer] number to have the tanks delivered. She confirmed that it will be
delivered timely so that patient does not run out of o2.
All documents for o2 were faxed to [facility]
Patient's spouse updated.
Updated Yaa from [facility] that o2 is no longer needed from their company.
Plan: Case management will continue to follow and assist with discharge planning. Home with o2.
--- NOTE | 2023-10-20 10:09 | W.PN.HOSP.TC ---
Addendum entered and electronically signed by Reynaldo Briscoe MD 10/23/23 16:20:
sepsis POA
Original Note:
Today's Communication/Plan
-
Discharge today
Assessment / Plan
Assessment / Plan
Assessment/Plan
67-year-old female presented to the hospital for intermittent shortness of breath and CT a negative for PE as she had a COVID few weeks ago, there is questionable pneumonia. While CHF may need to be considered.
RML Pneumonia
Psoriasis on Secukinumab
Lingular opacification most likely representing scarring (on CT imaging report)
Small to moderate size hiatal hernia (on CT imaging report)
Recent COVID-19 infection treated at home with ? steroids
Alcohol use
Acute hypoxic respiratory insufficiency
Possible COPD with flare
PLAN:
No PE on CT Chest imaging
Echo with EF of 70 to 75% with no significant valvular heart disease
BNP 433
Troponins negative
Doubt CHF. Suspect symptoms related to pneumonia which is suspect is infectious. She is feeling improved slowly with antibiotics.
Continue IV Rocephin and oral Zithromax - 7 days in total abx
Breathing treatment as needed
Wean oxygen as able.
Appreciate pulmonary input-steroids switchded to po pred taper
Home O2 readings noted-arranging home O2 for exertion
Remains medically stable for discharge.
Discussed with the patient and the regarding clinical diagnosis, new treatments and follow-up plan
Total time of discharge 32 minutes.
CODE STATUS full code
DVT prophylaxis Lovenox
Anticipated Discharge: Today
Subjective/Interval History
-
Date of Service: October 20, 2023
Remains improved with regards to breathing.
No chest pain.
No fever.
No nausea vomiting.
Discharge was on hold as home Oxygen set up was not able to be delivered.
Objective Data
-
Vital Signs:
Vital Signs
Temp Pulse Resp BP Pulse Ox
97.4 F 87 18 153/77 95
10/20/23 07:30 10/20/23 07:30 10/20/23 07:30 10/20/23 07:30 10/20/23 09:50
I&O
10/19/23 10/20/23 10/21/23
06:59 06:59 06:59
Intake Total 1140 / 1140 550 / 550 480 / 480
Balance 1140 / 1140 550 / 550 480 / 480
Review of Systems
-
Neuro: Denies Dizzy
Physical Exam
-
General: No Apparent Distress
HEENT: Moist Mucous Membranes
Respiratory: Non Labored Respirations; Negative Wheezes, Crackles or Accessory Resp Muscle Use
Cardiac: Regular Rhythm and S1/S2
Neuro: AO x 3
== END 2023-10-20 12:18 | disposition home health service (06) | DRG 871 ==
LOC: 3 WEST ACU 14:40
PROVIDERS: Hospitalist; ADMITTING PHYSICIAN Internal Medicine; ATTENDING PHYSICIAN Internal Medicine; EMERGENCY PHYSICIAN Emergency Medicine; FAMILY PHYSICIAN Physician Assistant Medical; OTHER PHYSICIAN Internal Medicine Critical Care Medicine
DX: A41.9 Sepsis, unspecified organism (principal); J18.9 Pneumonia, unspecified organism; E87.1 Hypo-osmolality and hyponatremia; J44.1 Chronic obstructive pulmonary disease with (acute) exacerbation; Z11.52 Encounter for screening for COVID-19; Z87.891 Personal history of nicotine dependence; L40.50 Arthropathic psoriasis, unspecified; R06.89 Other abnormalities of breathing; R09.02 Hypoxemia; Z86.16 Personal history of COVID-19
CPT/HCPCS: 71045; 71275; 80048; 80053; 83735; 83880; 84484; 85025; 85027; 87502; 87811; 93005; 93306; 94010; 94640; 97116; 97162; 97166; 99291; Q9950; Q9967

== ENCOUNTER → 2024-02-27 09:53 | Outpatient (REF) | payer OTHER, SELFPAY | LOC: RAD 09:53 | PROVIDERS: ATTENDING PHYSICIAN Nurse Practitioner Family; FAMILY PHYSICIAN Physician Assistant Medical | DX: R13.19 Other dysphagia (principal) | CPT/HCPCS: 74221 ==

== ENCOUNTER → 2025-07-31 08:19 | Outpatient (REF) | payer OTHER, SELFPAY | LOC: RAD 08:19 | PROVIDERS: ATTENDING PHYSICIAN Internal Medicine Rheumatology; FAMILY PHYSICIAN Physician Assistant Medical | DX: R60.0 Localized edema (principal) | CPT/HCPCS: 93971 ==